=== PATIENT | male | born 1965 | race Caucasian/White ===

== ENCOUNTER 2016-10-03 18:58 | Inpatient (IN) | payer OTHER ==
[~2016-10-03] VITALS: Ht 182.9 cm; Wt 97.8 kg
[~2016-10-03 18:58] MED LIST: AMLODIPINE BESYL5 MG PO; ASPIR-LOW81 MG; ASPIRIN EC325 MG PO; ATORVASTATIN CA40 MG PO; ATORVASTATIN CA80 MG PO; AVINZA75 MG PO; Aspirin E.C. PO; BACLOFEN10 MG PO; BUSPAR10 MG PO; CIPRO500 MG PO; CIPRO750 MG PO; CLONIDINE HCL0.1 MG PO; COLACE100 MG; DILAUDID2 MG PO; DOCU SOFT100 MG PO; DOCUSATE CALCI240 MG PO; Ecotrin PO; GABAPENTIN100 MG PO; GAVILAX510 GM PO; GLUCOPHAGE500 MG PO; IMDUR30 MG PO; Imdur PO; LANTUS 10100 UNITS/ SC; LEVEMIR FL100 UNIT/1 SC; LEVETIRACETAM250 MG PO; LIDOCREAM15 GM TP; LISINOPRIL20 MG PO; LOPRESSOR25 MG PO; LOPRESSOR50 MG PO; LOVENOX30 MG/0.3; Lopressor PO; MELOXICAM7.5 MG PO; METFORMIN HCL1000 M1 PO; METFORMIN HCL1000 MG PO; METFORMIN HCL500 MG PO; METHADONE10 MG; METHADONE10 MG PO; METOPROLOL TART25 MG PO; MS CONTIN,ORAMO30 MG PO; NEURONTIN600 MG PO; NEURONTIN800 MG PO; NICOTINE GUM4 MG BC; NICOTINE PATCH1 EAC2 TD; NORVASC5 MG PO; NOVOLOG PE100 UNITS/ SC; ONGLYZA5 MG PO; OXAYDO5 MG PO; OXYCODONE HCL30 MG; OXYCODONE HCL30 MG PO; PANTOPRAZOLE SO40 MG PO; PRAVASTATIN SOD80 MG PO; PROTONIX40 MG PO; RIFAMPIN300 MG; ROCEPHIN 2 GM VI2 GM IV; ROXICODONE30 MG PO; SIMVASTATIN40 MG PO; TRAMADOL HCL50 MG PO; Ultram PO; VALIUM5 MG PO; VIAGRA100 MG PO; ZESTRIL5 MG; ZESTRIL5 MG PO; ZOFRAN ODT8 MG PO
[2016-10-03 19:52] LABS: HEMATOCRIT 39.7 % (38.0-50.0); MCH 30.5 PG (29.0-34.0); MCV 84.6 FL (86-99); MEAN PLAT.VOLUME 9.8 uM^3 (9.0-12.4); PLATELET COUNT 268 K/uL (156-360); RBC DIS.WIDTH-CV 12.1 % (11.8-14.6); RBC DIS.WIDTH-SD 36.2 % (39-53); RED BLOOD COUNT 4.69 M/uL (4.00-5.50); WHITE BLOOD COUNT 10.8 K/uL (4.1-10.2)
[2016-10-03 20:01] LABS: CHLORIDE 106 mEq/L (99-109); POTASSIUM 4.3 mEq/L (3.7-5.4); SODIUM 140 mEq/L (136-147)
[2016-10-03 20:03] LABS: GLUCOSE 242 mg/dL (70-99)
[2016-10-03 20:04] LABS: ANION GAP 13 MEQ/L (2-14)
[2016-10-03 20:06] LABS: SERUM ETHYL ALCOHOL < 10 mg/dL
[2016-10-03 20:07] LABS: GFR ESTIMATE (CALCULATED) > 59 mL/min/
[2016-10-03 20:08] LABS: UREA NITROGEN (BUN) 13 mg/dL (9-23)
[2016-10-03] MEDS ORDERED: REMERON15 M2 PO (21:24)
[2016-10-03] MEDS ORDERED: LATUDA60 MG PO (21:25)
[2016-10-03] MEDS ORDERED: LYRICA50 MG PO (21:26)
[2016-10-03] MEDS ORDERED: NORVASC10 MG PO (21:29)
[2016-10-03] MEDS ORDERED: LIPITOR40 MG PO (21:30)
[2016-10-03] MEDS ORDERED: CELEBREX100 MG PO (21:36)
[2016-10-03 21:44] LABS: AMPHETAMINE NEGATIVE (500 ng/mL); BARBITURATES NEGATIVE (200 ng/mL); BENZODIAZEPINES NEGATIVE (150 ng/mL); COCAINE NEGATIVE (150 ng/mL); INTERNAL CONTROLS VALID? YES; METHADONE NEGATIVE (200 ng/mL); METHAMPHETAMINE NEGATIVE (500 ng/mL); OPIATES (MORPHINE) NEGATIVE (100 ng/mL); OXYCODONE NEGATIVE (100 ng/mL); PHENCYCLIDINE NEGATIVE (25 ng/mL); PROPOXYPHENE NEGATIVE (300 ng/mL); THC CANNABINOIDS NEGATIVE (50 ng/mL); TRICYCLIC ANTIDEPRESSANTS NEGATIVE (300 ng/mL)
[2016-10-03 23:51] VITALS: BP 134/71
[2016-10-04 00:17] LABS: POINT-OF-CARE METER ID UU13113830; POINT-OF-CARE USER ID BHSMEW
[2016-10-04 06:14] LABS: POINT-OF-CARE METER ID UU13113830; POINT-OF-CARE USER ID BHSMEW
[2016-10-04 07:42] VITALS: BP 124/57
[2016-10-04 11:44] LABS: POINT-OF-CARE METER ID UU13113830
[2016-10-04 16:06] VITALS: BP 150/79
[2016-10-04 17:12] LABS: POINT-OF-CARE METER ID UU13113830
[2016-10-04 20:54] LABS: POINT-OF-CARE METER ID UU13113830
[2016-10-05 06:48] LABS: POINT-OF-CARE METER ID UU13113830
[2016-10-05 07:57] VITALS: BP 118/68
[2016-10-05 11:53] LABS: POINT-OF-CARE METER ID UU13113830
[2016-10-05 15:29] VITALS: BP 127/69
[2016-10-05 17:03] LABS: POINT-OF-CARE METER ID UU13113830
[2016-10-05 21:35] LABS: POINT-OF-CARE METER ID UU13113830
[2016-10-06 06:17] LABS: POINT-OF-CARE METER ID UU13113830; POINT-OF-CARE USER ID ENVTLS63
[2016-10-06 07:50] VITALS: BP 125/62
[2016-10-06 12:16] LABS: POINT-OF-CARE METER ID UU13113830
[2016-10-06 15:33] VITALS: BP 138/65
[2016-10-06 16:57] LABS: POINT-OF-CARE METER ID UU13113830; POINT-OF-CARE USER ID BHSSMG
[2016-10-06 21:13] LABS: POINT-OF-CARE METER ID UU13113830; POINT-OF-CARE USER ID BHSSMG
[2016-10-07 06:22] LABS: POINT-OF-CARE METER ID UU13113830; POINT-OF-CARE USER ID ENVTLS63
[2016-10-07 07:46] VITALS: BP 132/71
[2016-10-07 11:33] LABS: POINT-OF-CARE METER ID UU13113830; POINT-OF-CARE USER ID HRSENV50
[2016-10-07] MEDS ORDERED: CIPROFLOXACIN500 M1 PO (13:19)
== END 2016-10-07 13:53 | disposition home or self-care (01) | DRG 885 ==
LOC: EME 18:58 → 1WEST 21:06 → EDOF 21:06 → 1WEST 21:06
PROVIDERS: Emergency Medicine; Psychiatry & Neurology Psychiatry
DX: F33.9 Major depressive disorder, recurrent, unspecified (principal); R45.851 Suicidal ideations; Z91.19 Patient's noncompliance with other medical treatment and regimen; I69.351 Hemiplegia and hemiparesis following cerebral infarction affecting right dominant side; E11.9 Type 2 diabetes mellitus without complications; I10 Essential (primary) hypertension; I25.10 Atherosclerotic heart disease of native coronary artery without angina pectoris; I25.2 Old myocardial infarction; E78.5 Hyperlipidemia, unspecified; Z89.512 Acquired absence of left leg below knee; Z95.5 Presence of coronary angioplasty implant and graft
CPT/HCPCS: 80048; 82948; 85027; 90837; 97150 GO; 97165 GO; 99281; 99285; G0480; J1815